=== PATIENT | female | born 1985 | race Caucasian/White ===

== ENCOUNTER 2017-12-20 10:52 | Emergency (ER) | payer BC, OTHER ==
[2017-12-20 11:45] LABS: Bilirubin Negative (Negative); Blood, Urine Small (Negative); Clarity CLEAR (Clear); Glucose, Urine (Dipstick) Negative (Negative); Leukocyte Trace (Negative); Nitrite Negative (Negative); Protein, Urine (Dipstick) Negative (Neg-Trace); Urobilinogen 0.2 mg/dL (0.2-1.0); pH, Urine 5.5 (5.0-9.0)
[2017-12-20 11:46] LABS: Bacteria/HPF Rare-Few HPF (None Seen); Hyaline Casts/LPF 0-3 HYALINE CAST LPF (0-3 Hyaline); Pathc Cast-AUWi Flag 0.81 (0-2.49); RBC/HPF 0-3 HPF (0-3); WBC/HPF 0-3 HPF (0-3)
[2017-12-20 12:03] LABS: Pregnancy Test - Urine (BHCG) Negative (Negative); Pregu Control Background? CLEAR/WHITE (CLR/WHITE); Pregu Control Bar Appear? YES (CONTROL BAR)
[2017-12-20] MEDS ORDERED: Ketorolac Tromethamine 60 MG/2 ML VIAL ONE (12:22)
--- NOTE | 2017-12-20 12:29 | ULT ---
PELVIC ULTRASOUND: COMPARISON: 06/13/13. HISTORY: Left lower quadrant abdominal/pelvic pain for 1 week. TECHNIQUE: Multiplanar, thornton scale, and color Doppler images were obtained in a transabdominal and transvaginal pelvic ultrasound. Spectral analysis of the Doppler waveforms of the ovaries was performed. FINDINGS: There is a nabothian cyst in the cervix. There is a small echogenic region without definite shadowin g in the cervical region. This may represent calcifications in the cervix. The uterus is normal in size without focal abnormality. The endometrial stripe is normal in appearance measuring 4 mm. The right ovary has normal flow and follicles. The largest measures 1.4 cm in size. The left ovary has been removed. There is a trace amount of free fluid in the pelvis. IMPRESSION: Nabothian cysts; otherwise, unremarkable exam. POS: [facility]
[2017-12-20] MEDS ORDERED: Ondansetron HCl/PF 4 MG/2 ML Vial ONE (14:13)
[2017-12-20] MEDS ORDERED: Famotidine/PF 20 mg/2ml Vial ONE (14:13)
[2017-12-20 14:47] LABS: #Basophils 0.1 thou/uL (0.0-0.2); #Eosinphils 0.1 thou/uL (0.0-0.7); #Lymphocytes 2.1 thou/uL (1.20-3.40); #Monocytes 0.5 thou/uL (0.11-0.59); #Neutrophils 9.1 thou/uL (1.40-6.50); %Basophils 0.9 % (0.0-1.0); %Eosinophils 0.6 % (0.0-10.0); %Lymphocytes 17.5 % (21.0-51.0); %Monocytes 3.9 % (0.0-10.0); %Neutrophils 77.1 % (42.0-75.0); Hemoglobin 15.8 g/dL (12.0-16.0); Mean Corpuscular HGB CONC 32.5 g/dL (32.0-36.0); Mean Corpuscular Hemoglobin 31.2 pg (27.0-31.0); Mean Corpuscular Volume 96.1 fl (81.0-99.0); Mean Platelet Volume 8.7 fL (7.4-10.4); Platelet Count 200 thou/uL (130-400); RBC Distribution Width 12.2 % (11.5-14.5); Red Blood Cell (RBC) Count 5.08 mill/uL (4.20-5.40); White Blood Cell (WBC) Count 11.8 thou/uL (4.8-10.8)
[2017-12-20 15:11] LABS: ALT (SGPT) 11 U/L (8-55); AST (SGOT) 15 U/L (5-34); Albumin 4.1 g/dL (3.5-5.0); Alkaline Phosphatase 38 U/L (40-150); Anion Gap 13 mmol/L (10-20); BUN (Urea Nitrogen) 19 mg/dL (7.0-18.7); Bilirubin, Total 0.5 mg/dL (0.2-1.2); Calc. Creatinine Clearance 0 mL/min (70-130); Calcium 9.6 mg/dL (7.8-10.44); Carbon Dioxide 25 mmol/L (22-29); Chloride 105 mmol/L (98-107); Estimated GFR-MDRD 60; Globulin 3.1 g/dL (2.4-3.5); Glucose 96 mg/dL (70-105); Lipase 43 U/L (8-78); Protein, Total 7.2 g/dL (6.0-8.3); Sodium 139 mmol/L (136-145)
[2017-12-20] MEDS ORDERED: Pregabalin 75 MG CAP PO SCH (15:30)
[2017-12-20] MEDS ORDERED: Acetaminophen 500 MG TAB PO SCH (15:45)
--- NOTE | 2017-12-20 15:46 | CT ---
CT OF THE ABDOMEN AND PELVIS WITHOUT CONTRAST: COMPARISON: 02/15/13. HISTORY: Left lower quadrant abdominal pain for 3 days. TECHNIQUE: Multiple contiguous axial images were obtained through the abdomen and pelvis without contrast. Shane nal reformats were performed. FINDINGS: The liver, gallbladder, kidneys, adrenal glands, spleen, and pancreas are unremarkable, although eval uation is limited on this noncontrast examination. No free air, free fluid, or stranding changes are seen in the abdomen and pelvis. The reproductive organs are grossly unremarkable. The large and small bowel are unremarkable. The a ppendix is normal. No abdominal or pelvic lymphadenopathy are seen. Osseous structures, visualized inferior thorax, and abdominal wall soft tissues are unremarkable. IMPRESSION: No evidence of acute intraabdominal/pelvic abnormality. POS: [facility]
[2017-12-21 19:46] LABS: Chlamydia by PCR Not Detected (NotDetected); GC by PCR Not Detected (NotDetected)
== END 2017-12-20 15:31 | disposition home or self-care (01) ==
LOC: ERS 10:52
DX: R10.32 Left lower quadrant pain (principal); I10 Essential (primary) hypertension; Z79.899 Other long term (current) drug therapy
CPT/HCPCS: 36415; 74176; 76856; 80053; 81003; 81015; 81025; 83690; 85025; 87086; 87480; 87491; 87510; 87591; 87660; 96361; 96372; 96374; 96375; J1885; J2405; S0028

== ENCOUNTER 2018-01-29 02:38 | Emergency (ER) | payer BC, SELFPAY ==
[2018-01-29] MEDS ORDERED: Pregabalin 50 MG CAP PO SCH (04:15)
[2018-01-29 04:16] LABS: Bilirubin Small (Negative); Blood, Urine Negative (Negative); Clarity CLEAR (Clear); Glucose, Urine (Dipstick) Negative (Negative); Leukocyte Negative (Negative); Nitrite Negative (Negative); Pregnancy Test - Urine (BHCG) Negative (Negative); Pregu Control Background? CLEAR/WHITE (CLR/WHITE); Pregu Control Bar Appear? YES (CONTROL BAR); Protein, Urine (Dipstick) 30 mg/dL (Neg-Trace); Specific Gravity, Urine 1.023 (1.002-1.036); Urobilinogen 0.2 mg/dL (0.2-1.0); pH, Urine 7.5 (5.0-9.0)
[2018-01-29 04:20] LABS: Bacteria/HPF 1+ HPF (None Seen); Hyaline Casts/LPF 0-3 HYALINE CAST LPF (0-3 Hyaline); Pathc Cast-AUWi Flag 0.13 (0-2.49); RBC/HPF 0-3 HPF (0-3); WBC/HPF 0-3 HPF (0-3)
[2018-01-29] MEDS ORDERED: Ketorolac Tromethamine 30 MG/ML VIAL ONE (04:21)
[2018-01-29 04:26] LABS: Specific Gravity 1.023 (1.002-1.036)
== END 2018-01-29 04:56 | disposition home or self-care (01) ==
LOC: ERS 02:38
DX: M79.7 Fibromyalgia (principal); M54.5 Low back pain; I10 Essential (primary) hypertension; F17.210 Nicotine dependence, cigarettes, uncomplicated
CPT/HCPCS: 36415; 81003; 81015; 81025; 85652; 86140; 96372; J1885

== ENCOUNTER 2018-02-09 10:10 | Emergency (ER) | payer SELFPAY | END 2018-02-09 10:53 | disposition home or self-care (01) | LOC: ERS 10:10 | DX: Z76.0 Encounter for issue of repeat prescription (principal); M79.7 Fibromyalgia; Z71.6 Tobacco abuse counseling; Z79.899 Other long term (current) drug therapy | CPT/HCPCS: 99406 ==

== ENCOUNTER 2018-02-12 10:06 | Emergency (ER) | payer SELFPAY | END 2018-02-12 17:43 | disposition home or self-care (01) | LOC: ERS 10:06 | DX: G89.29 Other chronic pain (principal); M79.7 Fibromyalgia; Z79.899 Other long term (current) drug therapy | CPT/HCPCS: 99283 ==

== ENCOUNTER 2018-04-02 09:17 | Emergency (ER) | payer SELFPAY ==
[2018-04-02 10:55] LABS: Pregnancy Test - Urine (BHCG) Negative (Negative); Pregu Control Background? CLEAR/WHITE (CLR/WHITE); Pregu Control Bar Appear? YES (CONTROL BAR); Specific Gravity 1.026 (1.002-1.036)
[2018-04-02] MEDS ORDERED: Ketorolac Tromethamine 60 MG/2 ML VIAL ONE (11:06)
== END 2018-04-02 11:24 | disposition home or self-care (01) ==
LOC: ERS 09:17
DX: M62.838 Other muscle spasm (principal); Z79.899 Other long term (current) drug therapy
CPT/HCPCS: 81025; 96372; J1885

== ENCOUNTER 2019-02-15 12:32 | Emergency (ER) | payer OTHER, SELFPAY | END 2019-02-15 14:03 | disposition home or self-care (01) | LOC: ERS 12:32 | DX: K02.9 Dental caries, unspecified (principal); K03.81 Cracked tooth | CPT/HCPCS: 99282 ==

== ENCOUNTER 2019-06-21 13:56 | Emergency (ER) | payer OTHER | END 2019-06-21 14:58 | disposition home or self-care (01) | LOC: ERS 13:56 | DX: K02.9 Dental caries, unspecified (principal) | CPT/HCPCS: 99282 ==

== ENCOUNTER 2019-07-06 08:16 | Emergency (ER) | payer OTHER | END 2019-07-06 08:35 | disposition home or self-care (01) | LOC: ERS 08:16 → SCSER 08:35 | DX: K02.9 Dental caries, unspecified (principal) | CPT/HCPCS: 99282 ==

== ENCOUNTER 2019-07-30 08:34 | Emergency (ER) | payer OTHER ==
[2019-07-30] MEDS ORDERED: Bupivacaine 0.5% 10 ML VIAL ONE (08:41)
== END 2019-07-30 09:09 | disposition home or self-care (01) ==
LOC: SCSER 08:34
DX: K02.9 Dental caries, unspecified (principal); F17.210 Nicotine dependence, cigarettes, uncomplicated
CPT/HCPCS: 64400; J3490

== ENCOUNTER 2019-10-31 11:30 | Emergency (ER) | payer OTHER, SELFPAY | END 2019-10-31 11:57 | disposition home or self-care (01) | LOC: ERS 11:30 | DX: I10 Essential (primary) hypertension (principal); F17.210 Nicotine dependence, cigarettes, uncomplicated; Z76.0 Encounter for issue of repeat prescription; Z79.899 Other long term (current) drug therapy | CPT/HCPCS: 99281 ==